=== PATIENT | female | born 1970 | race Caucasian/White ===

== ENCOUNTER 2017-04-04 10:53 | Emergency (ER) | payer OTHER ==
[2017-04-04 11:03] VITALS: BP 105/52; PULSE 92; TEMP 98; BMI 19.1
--- NOTE | 2017-04-04 11:33 | PDOC ---
History of Present Illness - General Chief Complaint: Cold Symptoms Stated Complaint: FEVER, COUGH Time Seen by Provider: 04/04/17 11:19 History Source: Patient Exam Limitations: No Limitations - History of Present Illness Initial Comments: 04/04/17 11:48 My Chief complaint: Sore throat, productive cough, chills and subjective fever nasal congestion and body aches History of present illness: Patient is a 47 year old female with no significant medical history here today with her complaining of generalized body aches, chills and subjective fever times one week with productive cough greenish phlegm with intermittent shortness of breath when coughing a lot. Patient also has nasal congestion. Patient denies any recent travel or any sick contacts. Patient denies any nausea vomiting or diarrhea. Patient is afebrile presently. Patient reports that she coughs more at night. 04/04/17 12:00 Timing/Duration: 1 week, getting worse Severity: mild Associated Symptoms: reports: cough (productive greenish ), fever/chills, shortness of breath (intermittent when coughing a lot ), other (sore throat) Past History - Past Medical History Allergies/Adverse Reactions: Allergies Allergy/AdvReac Type Severity Reaction Status Date / Time No Known Allergies Allergy Verified 04/04/17 11:01 Home Medications: Ambulatory Orders Azithromycin [Zithromax 250mg Tablets -] 250 mg PO UTDICT #6 tab 04/04/17 Fexofenadine HCl [Jennifer Allergy] 180 mg PO DAILY #7 tablet 04/04/17 Promethazine HCl/Codeine [Prometh-Codein 6.25-10 mg/5 ml] 5 ml PO Q8H PRN #50 ml MDD 15ml 04/04/17 Other medical history: denies. - Surgical History Abdominal Surgery: Yes Appendectomy: Yes - Psycho/Social/Smoking Cessation Hx Anxiety: No Suicidal Ideation: No Smoking Status: No Smoking History: Never smoked Have you smoked in the past 12 months: No Number of Cigarettes Smoked Daily: 0 Hx Alcohol Use: No Drug/Substance Use Hx: No Substance Use Type: None Review of Systems - Review of Systems Able to Perform ROS?: Yes Constitutional: Yes: Chills, Fever HEENTM: Yes: Nose Congestion, Throat Pain Respiratory: Yes: Shortness of Breath (intermittently when coughing a lot ), Productive cough Cardiac (ROS): No: Symptoms Reported ABD/GI: No: Symptoms Reported : No: Symptoms Reported Musculoskeletal: No: Symptoms Reported Integumentary: No: Symptoms Reported Neurological: No: Symptoms reported *Physical Exam - Vital Signs Last Vital Signs Temp Pulse Resp BP Pulse Ox 98.0 F 92 H 18 105/52 100 04/04/17 11:00 04/04/17 11:00 04/04/17 11:00 04/04/17 11:00 04/04/17 11:00 - Physical Exam General Appearance: Yes: Appropriately Dressed HEENT: positive: TMs Normal, Pharyngeal Erythema, Nasal Congestion. negative: Tonsillar Exudate, Tonsillar Erythema, Rhinorrhea Neck: negative: Lymphadenopathy (R), Lymphadenopathy (L) Respiratory/Chest: positive: Lungs Clear, Normal Breath Sounds. negative: Chest Tender, Respiratory Distress Cardiovascular: positive: Regular Rhythm, Regular Rate, S1, S2 Gastrointestinal/Abdominal: positive: Normal Bowel Sounds, Soft. negative: Tender, Organomegaly, Distended, Guarding, Rebound, Tenderness, Hepatomegaly, Spleenomegaly Integumentary: positive: Normal Color Neurologic: positive: Alert, Normal Response, Responsive Medical Decision Making - Medical Decision Making 04/04/17 11:49 Patient is a 47 year old female with no significant medical history here today with her complaining of generalized body aches, chills and subjective fever times one week with productive cough greenish phlegm with intermittent shortness of breath when coughing a lot. Patient also has nasal congestion. Patient denies any recent travel or any sick contacts. Patient denies any nausea vomiting or diarrhea. Patient is afebrile presently. Patient reports that she coughs more at night. Bronchitis Nasal congestion PLAN: azithromycin 250 mg 2 tabs daily than 1 tab daily for following 4 days decadron 10 mg po now duoneb now promethazine-Codeine 6.25-10mg/5ml every 8 hrs prn cough # 50 ml jennifer 180 mg daily for 7 days 04/04/17 12:01 *DC/Admit/Observation/Transfer Diagnosis at time of Disposition: Bronchitis - Discharge Dispostion Disposition: HOME Condition at time of disposition: Stable - Prescriptions Prescriptions: Promethazine HCl/Codeine [Prometh-Codein 6.25-10 mg/5 ml] 5 ml PO Q8H PRN #50 ml MDD 15ml PRN Reason: Cough - Patient Instructions Additional Instructions: Follow Up with primary care provider within the next few days return to emergency room if any difficulty breathing or new symptoms develop Drink A fluids and rest Take ibuprofen or acetaminophen as needed as directed by supervisor gear repair for fever or pain Patient voiced understanding of discharge instructions and all questions were answered
[2017-04-04] MEDS ORDERED: ALBUTEROL SO4 2.5/IPRATROPIUM 0.5 INH SOL 3 ML VIAL.NEB. NEB ONE ×2 (11:42→11:46)
[2017-04-04] MEDS ORDERED: DEXAMETHASONE LIQUID 0.5 MG/5 ML 240 ML BULK BOTTLE PO ONE (11:43)
[2017-04-04] MEDS ORDERED: DEXAMETHASONE SOD PHOSPHATE 10 MG/1 ML VIAL ONE (11:45)
== END 2017-04-04 12:13 | disposition home or self-care (01) ==
LOC: JERFT 10:53
PROC: 3E0F7GC Introduction of Other Therapeutic Substance into Respiratory Tract, Via Natural or Artificial Opening (ICD-10-PCS; principal; 2017-04-04)
DX: J40 Bronchitis, not specified as acute or chronic (principal)
CPT/HCPCS: 94640; 99281-25

== ENCOUNTER 2017-04-28 19:36 | Emergency (ER) | payer OTHER ==
--- NOTE | 2017-04-28 19:43 | PDOC ---
Rapid Medical Evaluation Time Seen by Provider: 04/28/17 19:40 Medical Evaluation: Allergies Allergy/AdvReac Type Severity Reaction Status Date / Time No Known Allergies Allergy Verified 04/04/17 11:01 I have performed a brief in-person evaluation of this patient. The patient presents with a chief complaint of: left groin pain that radiates around to her left back for 1 hour. Pain intensity is intermittent. no dysuria or hematuria. Pertinent physical exam findings: Pain with palpation of suprapubic region, left groin and left flank. No CVA TTP b/l. I have ordered the following: hcg, UA, culture The patient will proceed to the ED for further evaluation.
[2017-04-28 19:46] VITALS: BP 111/58; PULSE 80; TEMP 97.7; BMI 24.6
[2017-04-28 20:09] LABS: URINE APPEARANCE CLEAR; URINE BILIRUBIN NEGATIVE (NEGATIVE); URINE COLOR COLORLESS; URINE GLUCOSE (UA) NEGATIVE (NEGATIVE); URINE KETONE NEGATIVE (NEGATIVE); URINE LEUK ESTERASE NEGATIVE (NEGATIVE); URINE NITRITE NEGATIVE (NEGATIVE); URINE PROTEIN NEGATIVE (NEGATIVE); URINE UROBILINOGEN NEGATIVE E.U./dl (0.2-1.0)
[2017-04-28 20:16] LABS: URINE BLOOD 1+ (NEGATIVE)
[2017-04-28 20:17] LABS: URINE RBC 1 /hpf (0-3); URINE WBC <1 /hpf (3-5)
[2017-04-28] MEDS ORDERED: SODIUM CHLORIDE 1,000 ML IV STA (20:32)
--- NOTE | 2017-04-28 20:44 | PDOC ---
History of Present Illness - General Chief Complaint: Pain Stated Complaint: SIDE PAIN Time Seen by Provider: 04/28/17 19:40 History Source: Patient Exam Limitations: No Limitations - History of Present Illness Travel History: No Initial Comments: 04/28/17 20:40 47-year-old female presents to the emergency department complaining of left sided LBP 5/10 sharp pain radiating to the right groin to mid ant thigh without fever, chills, nausea/vomiting, abdominal pains, urinary symptoms: Frequency/ urgency/hesitancy, chest pain, shortness of breath. No bladder/bowel dysfunction. Timing/Duration: reports: intermittent Quality: reports: mild Abdominal Pain Onset Location: reports: flank (left) Pain Radiation: reports: groin (left) Past History - Past Medical History Allergies/Adverse Reactions: Allergies Allergy/AdvReac Type Severity Reaction Status Date / Time No Known Allergies Allergy Verified 04/28/17 19:43 Home Medications: Ambulatory Orders NK [No Known Home Medication] 04/28/17 Other medical history: Pt denies - Surgical History Abdominal Surgery: Yes Appendectomy: Yes (in 2006) - Psycho/Social/Smoking Cessation Hx Anxiety: No Suicidal Ideation: No Smoking Status: No Smoking History: Never smoked Have you smoked in the past 12 months: No Number of Cigarettes Smoked Daily: 0 Information on smoking cessation initiated: No Hx Alcohol Use: No Drug/Substance Use Hx: No Substance Use Type: None Review of Systems - Review of Systems Able to Perform ROS?: Yes Comments:: 04/28/17 20:43 CONSTITUTIONAL: Absent: fever, chills, diaphoresis, generalized weakness, malaise, loss of appetite HEENT: Absent: rhinorrhea, nasal congestion, throat pain, throat swelling, difficulty swallowing, mouth swelling, ear pain, eye pain, visual Changes CARDIOVASCULAR: Absent: chest pain, loss of consciousness, palpitations, irregular heart rate, peripheral edema RESPIRATORY: Absent: cough, shortness of breath, dyspnea with exertion, orthopnea, wheezing, stridor, hemoptysis GASTROINTESTINAL: Absent: abdominal pain, abdominal distension, nausea, vomiting, diarrhea, constipation, melena, hematochezia GENITOURINARY: Absent: dysuria, frequency, urgency, hesitancy, hematuria, flank pain, genital pain MUSCULOSKELETAL: Absent: myalgia, arthralgia, joint swelling SKIN: Absent: rash, itching, pallor HEMATOLOGIC/IMMUNOLOGIC: Absent: easy bleeding, easy bruising, lymphadenopathy, frequent infections ENDOCRINE: Absent: unexplained weight gain, unexplained weight loss, heat intolerance, cold intolerance NEUROLOGIC: Absent: headache, focal weakness or paresthesias, dizziness, unsteady gait, seizure, mental status changes, bladder or bowel incontinence PSYCHIATRIC: Absent: anxiety, depression, suicidal or homicidal ideation, hallucinations. Is the patient limited Lithuanian proficient: No *Physical Exam - Vital Signs Last Vital Signs Temp Pulse Resp BP Pulse Ox 97.7 F 80 19 111/58 100 04/28/17 19:44 04/28/17 19:44 04/28/17 19:44 04/28/17 19:44 04/28/17 19:44 - Physical Exam Comments: 04/28/17 20:43 GENERAL: Well developed, well nourished. Awake and alert. No acute distress. HEENT: Normocephalic, atraumatic. PERRLA, EOMI. No conjunctival pallor. Sclera are non- icteric. Moist mucous membranes. Oropharynx is clear. NECK: Supple. Full ROM. No JVD. Carotid pulses 2+ and symmetric, without bruits. No thyromegaly. No lymphadenopathy. CARDIOVASCULAR: Regular rate and rhythm. No murmurs, rubs, or gallops. Distal pulses are 2+ and symmetric. PULMONARY: No evidence of respiratory distress. Lungs clear to auscultation bilaterally. No wheezing, rales or rhonchi. ABDOMINAL: Soft. Non-tender. Non-distended. No rebound or guarding. No organomegaly. Normoactive bowel sounds. MUSCULOSKELETAL Normal range of motion at all joints. No bony deformities or tenderness. No CVA tenderness. EXTREMITIES: +left SLR No cyanosis. No clubbing. No edema. No calf tenderness. SKIN: Warm and dry. Normal capillary refill. No rashes. No jaundice. NEUROLOGICAL: Alert, awake, appropriate. Cranial nerves 2-12 intact. No deficits to light touch and temperature in face, upper extremities and lower extremities. No motor deficits in the in face, upper extremities and lower extremities. Normoreflexic in the upper and lower extremities. Normal speech. Toes are down- going bilaterally. Gait is normal without ataxia. PSYCHIATRIC: Cooperative. Good eye contact. Appropriate mood and affect. ED Treatment Course - LABORATORY CBC & Chemistry Diagram: 04/28/17 20:30 04/28/17 20:30 - ADDITIONAL ORDERS Additional order review: Laboratory Results 04/28/17 19:50 Urine Color Colorless Urine Appearance Clear Urine pH 6.0 D Urine Protein Negative Urine Glucose (UA) Negative Urine Ketones Negative Urine Blood 1+ H Urine Nitrite Negative Urine Bilirubin Negative Urine Urobilinogen Negative Ur Leukocyte Esterase Negative Urine HCG, Qual Negative - RADIOLOGY Radiology Studies Ordered: Category Date Time Status SPIRAL- RENAL-STONE CT [CT] Stat CT Scan 04/28/17 20:32 Ordered *DC/Admit/Observation/Transfer Diagnosis at time of Disposition: Herniated lumbar intervertebral disc - Discharge Dispostion Disposition: HOME Condition at time of disposition: Stable Admit: No - Referrals Referrals: Janessa Woodward MD [Primary Care Provider] - Félix Leiva MD [Staff Physician] - - Patient Instructions Printed Discharge Instructions: Herniated Disc Additional Instructions: Follow up with the neurosurgeon listed on your discharge papers Tylenol/Motrin as needed for mild pain Percocet for severe pain Medrol dose pack Return to the ER for severe/persistent/worsening symptoms, bladder/bowel dysfunction.
[2017-04-28 20:48] LABS: BASOPHIL 1.2 % (0-2.0); EOSINOPHIL 2.9 % (0-4.5); MCH 27.4 pg (25.7-33.7); MCHC 33.7 g/dl (32.0-36.0); MEAN CELL VOLUME 81.3 fl (80-96); MEAN PLT VOLUME 9.4 fl (7.5-11.1); NEUTROPHILS 60.7 % (42.8-82.8); PLATELET COUNT 258 K/MM3 (134-434); RDW 13.7 % (11.6-15.6); WHITE BLOOD COUNT 6.9 K/mm3 (4.0-10.0)
[2017-04-28 21:12] LABS: ALBUMIN 3.7 g/dl (3.4-5.0); ALK PHOS 130 U/L (45-117); ANION GAP 9 (8-16); BILIRUBIN,TOTAL 0.3 mg/dL (0.2-1.0); CALCIUM 8.7 mg/dL (8.5-10.1); CO2 29 mmol/L (21-32); CREATININE 0.6 mg/dL (0.55-1.02); GLUCOSE,RANDOM 94 mg/dL (74-106); SGOT/AST 24 U/L (15-37); SGPT/ALT 33 U/L (12-78); TOT PROT 7.1 g/dl (6.4-8.2)
[2017-04-29] MEDS ORDERED: OXYCODONE/APAP 5/325MG COMBO TABLET PO ONE (01:10)
[2017-04-29] MEDS ORDERED: OXYCODONE/APAP 5/325MG COMBO TABLET ONE (01:28)
--- NOTE | 2017-05-01 13:33 | PDOC ---
Patient Follow-up (Call Back) - Post ED Follow - Up Condition at time of discharge: Stable Disposition at time of original discharge: HOME Reason for Call Back: Abnwl. Microbiology Signs/Symptoms Improved: Yes - Disposition Additional Instructions/Notes: Patient called and notified of positive urine culture. Called prescription/ transmitted Macrobid 100 mg twice a day 1 week to [facility] pharmacy patient understands plan and will follow up with PCP
== END 2017-04-29 01:37 | disposition home or self-care (01) ==
LOC: JER 19:36
PROC: 3E0337Z Introduction of Electrolytic and Water Balance Substance into Peripheral Vein, Percutaneous Approach (ICD-10-PCS; principal; 2017-04-28)
DX: M51.26 Other intervertebral disc displacement, lumbar region (principal)
CPT/HCPCS: 36415; 74176; 80053; 81003; 81015; 84703; 85025; 87086; 87186; 96360; 99282-25

== ENCOUNTER 2017-09-09 06:58 | Emergency (ER) | payer OTHER ==
[2017-09-09 07:11] VITALS: TEMP 98; BMI 24.2
--- NOTE | 2017-09-09 07:32 | PDOC ---
History of Present Illness - General History Source: Patient Exam Limitations: No Limitations - History of Present Illness Initial Comments: 09/09/17 07:41 47 year old female, with no significant past medical history, who presents to the emergency room complaining of lower back pain that started this morning after lifting a heavy box. She states that the pain is exacerbated when walking. She took two motrin without relief. She notes that this happened once before in the past and the pain resolved after 1 week. Denies fever, chills, nausea, vomiting. Denies extremity weakness, numbness and tingling. Denies urinary symptoms. Denies neck pain. Allergies: NKDA PCP: Dr. Janessa Woodward <Idalia Mckeon - Last Filed: 09/09/17 10:09> <Sonya Romo - Last Filed: 09/09/17 11:49> - General Chief Complaint: Back Pain Stated Complaint: BACK PAIN Time Seen by Provider: 09/09/17 07:27 Past History <Idalia Mckeon - Last Filed: 09/09/17 10:09> - Past Medical History Other medical history: DENIES - Surgical History Abdominal Surgery: Yes Appendectomy: Yes (in 2006) - Suicide/Smoking/Psychosocial Hx Smoking Status: No Smoking History: Never smoked Have you smoked in the past 12 months: No Number of Cigarettes Smoked Daily: 0 Hx Alcohol Use: No Drug/Substance Use Hx: No Substance Use Type: None <Sonya Romo - Last Filed: 09/09/17 11:49> - Past Medical History Allergies/Adverse Reactions: Allergies Allergy/AdvReac Type Severity Reaction Status Date / Time No Known Allergies Allergy Verified 09/09/17 07:11 Home Medications: Ambulatory Orders NK [No Known Home Medication] 09/09/17 Review of Systems - Review of Systems Able to Perform ROS?: Yes Comments:: 09/09/17 07:41 GENERAL/CONSTITUTIONAL: No fever or chills. No weakness. HEAD, EYES, EARS, NOSE AND THROAT: No change in vision. No ear pain or discharge. No sore throat. GASTROINTESTINAL: No nausea, vomiting, diarrhea or constipation. GENITOURINARY: No dysuria, frequency, or change in urination. CARDIOVASCULAR: No chest pain or shortness of breath. RESPIRATORY: No cough, wheezing, or hemoptysis. MUSCULOSKELETAL: +lower back pain. No neck pain. SKIN: No rash NEUROLOGIC: No headache, vertigo, loss of consciousness, or change in strength/ sensation. ENDOCRINE: No increased thirst. No abnormal weight change. HEMATOLOGIC/LYMPHATIC: No anemia, easy bleeding, or history of blood clots. ALLERGIC/IMMUNOLOGIC: No hives or skin allergy. <Idalia Mckeon - Last Filed: 09/09/17 10:09> *Physical Exam - Vital Signs Last Vital Signs Temp Pulse Resp BP Pulse Ox 98.0 F 75 22 121/48 98 09/09/17 07:08 09/09/17 07:08 09/09/17 07:08 09/09/17 07:08 09/09/17 07:08 - Physical Exam Comments: 09/09/17 07:42 GENERAL: Awake, alert, and fully oriented, in no acute distress HEAD: No signs of trauma EYES: PERRLA, EOMI, sclera anicteric, conjunctiva clear ENT: Auricles normal inspection, hearing grossly normal, nares patent, oropharynx clear without exudates. Moist mucosa NECK: Normal ROM, supple, no lymphadenopathy, JVD, or masses LUNGS: Breath sounds equal, clear to auscultation bilaterally. No wheezes, and no crackles HEART: Regular rate and rhythm, normal S1 and S2, no murmurs, rubs or gallops ABDOMEN: Soft, nontender, normoactive bowel sounds. No guarding, no rebound. No masses EXTREMITIES: Normal range of motion, no edema. No clubbing or cyanosis. No cords, erythema, or tenderness BACK: +paraspinal lumbar tenderness to palpation.+ sacral tenderness to palpation. No midline spinal tenderness in cervical/thoracic/lumbar region NEUROLOGICAL: Normal speech, cranial nerves intact, negative pronator drift, 5/ 5 strength in all 4 extremities, normal sensation to light touch in all 4 extremities, normal cerebellar exam, antalgic but steady gait, normal reflexes and tone SKIN: Warm, Dry, normal turgor, no rashes or lesions noted. <Idalia Mckeon - Last Filed: 09/09/17 10:09> - Vital Signs Last Vital Signs Temp Pulse Resp BP Pulse Ox 98.0 F 75 22 121/48 98 09/09/17 07:08 09/09/17 07:08 09/09/17 07:08 09/09/17 07:08 09/09/17 07:08 <Sonya Romo - Last Filed: 09/09/17 11:49> Medical Decision Making - Medical Decision Making 09/09/17 10:10 Called [id number] at 9:31am Urine HCG received at 7:45am sent to [facility]. Awaiting result then Xray <Idalia Mckeon - Last Filed: 09/09/17 10:09> - Medical Decision Making 09/09/17 07:37 47-year-old female presents with lumbosacral back pain after lifting a heavy box this morning and hearing a "crack." Vitals are unremarkable. Exam with tenderness to palpation all along the sacrum and paraspinal lumbar muscles with no midline tenderness to palpation. Patient able to ambulate in the ED. No red flags of urinary retention or weakness or decreased sensation in the lower extremities. Likely musculoskeletal strain versus disc herniation. -UPT -UA -pain control -XR -anticipate DC 09/09/17 11:46 UA with blood, pt has period. UPT negative. XR with no acute findings. Pain well controlled with percocet and flexuril. Likely MSK pain I discussed the physical exam findings, ancillary test results and final diagnoses with the patient. I answered all of the patient's questions. The patient was satisfied with the care received and felt comfortable with the discharge plan and treatment plan. The patient will call their primary care physician within 24 hours to arrange follow-up and will return to the Emergency Department with any new, persistent or worsening symptoms. <Sonya Romo - Last Filed: 09/09/17 11:49> *DC/Admit/Observation/Transfer - Attestations Scribe Attestion: 09/09/17 07:42 Documentation prepared by TERESA Meehan, acting as medical aide for Sonya Romo MD. <Idalia Mckeon - Last Filed: 09/09/17 10:09> - Discharge Dispostion Admit: No - Attestations Physician Attestion: 09/09/17 11:47 I, Dr. Sonya Romo MD, attest that this document has been prepared under my direction and personally reviewed by me in its entirety. I further attest, that it accurately reflects all work, treatment, procedures and medical decision -making performed by me. <Sonya Romo - Last Filed: 09/09/17 11:49> Diagnosis at time of Disposition: Back sprain or strain - Discharge Dispostion Disposition: HOME Condition at time of disposition: Stable - Referrals Referrals: Janessa Woodward MD [Primary Care Provider] - - Patient Instructions Additional Instructions: Please follow up with Dr. Janessa Woodward within 1 week. Return to the emergency department if you have new, worsening, or concerning symptoms.
[2017-09-09] MEDS ORDERED: CYCLOBENZAPRINE HCL 10 MG TABLET (FP) PO ONE (07:36)
[2017-09-09] MEDS ORDERED: CYCLOBENZAPRINE HCL 10 MG TABLET (FP) ONE (07:41)
[2017-09-09 07:55] LABS: URINE APPEARANCE CLEAR; URINE BILIRUBIN NEGATIVE (NEGATIVE); URINE BLOOD 3+ (NEGATIVE); URINE COLOR YELLOW; URINE GLUCOSE (UA) NEGATIVE (NEGATIVE); URINE KETONE NEGATIVE (NEGATIVE); URINE NITRITE NEGATIVE (NEGATIVE); URINE UROBILINOGEN NEGATIVE mg/dL (0.2-1.0)
[2017-09-09 08:47] LABS: URINE PROTEIN 2+ (NEGATIVE)
[2017-09-09 08:50] LABS: URINE MUCUS RARE; URINE RBC 43 /hpf (0-3); URINE WBC 2 /hpf (3-5)
[2017-09-09] MEDS ORDERED: ONDANSETRON *ODT* 4 MG TABLET ONE (09:00)
[2017-09-09] MEDS ORDERED: ONDANSETRON *ODT* 4 MG TABLET SL ONE (09:10)
[2017-09-09 10:56] LABS: URINE LEUK ESTERASE Negative (NEGATIVE)
[2017-09-09 12:11] VITALS: BP 100/72; PULSE 80
== END 2017-09-09 12:12 | disposition home or self-care (01) ==
LOC: JER 06:58
DX: S39.012A Strain of muscle, fascia and tendon of lower back, initial encounter (principal); X50.0XXA Overexertion from strenuous movement or load, initial encounter; Y93.89 Activity, other specified; Y92.89 Other specified places as the place of occurrence of the external cause; Y99.8 Other external cause status
CPT/HCPCS: 72100-TC; 81003; 81015; 84703; 87086; 99283-25

== ENCOUNTER 2017-09-16 19:49 | Emergency (ER) | payer OTHER ==
[2017-09-16 19:58] VITALS: BP 128/87; BMI 25.7
--- NOTE | 2017-09-16 20:49 | PDOC ---
Attending Attestation - Physicial Exam PE: 09/16/17 20:51 GENERAL: Well developed, well nourished. Awake and alert. In no acute distress. HEENT: Normocephalic, atraumatic. PERRLA, EOMI. No conjunctival pallor. Sclerae are non -icteric. Moist mucous membranes. Oropharynx is clear. NECK: Supple. Full ROM. No JVD. Carotid pulses 2+ and symmetric, without bruits. No thyromegaly. No lymphadenopathy. CARDIOVASCULAR: Regular rate and rhythm. No murmurs, rubs, or gallops. Distal pulses are 2+ and symmetric. PULMONARY: No evidence of respiratory distress. Lungs clear to auscultation bilaterally. No wheezing, rales or rhonchi. ABDOMINAL: Soft. Non-tender. Non-distended. No rebound or guarding. No organomegaly. Normoactive bowel sounds. MUSCULOSKELETAL Normal range of motion at all joints. No bony deformities or tenderness. No CVA tenderness. EXTREMITIES: No cyanosis. No clubbing. No edema. No calf tenderness. SKIN: Warm and dry. Normal capillary refill. No rashes. No jaundice. NEUROLOGICAL: Alert, awake, appropriate. Cranial nerves 2-12 intact. No deficits to light touch and temperature in face, upper extremities and lower extremities. No motor deficits in the in face, upper extremities and lower extremities. Normoreflexic in the upper and lower extremities. Normal speech. Toes are downgoing bilaterally. Gait is normal without ataxia. PSYCHIATRIC: Cooperative. Good eye contact. Appropriate mood and affect. <Dara Varghese - Last Filed: 09/16/17 20:51> - Resident Resident Name: Abimael Valencia - ED Attending Attestation I have performed the following: I have examined & evaluated the patient, The case was reviewed & discussed with the resident, I agree w/resident's findings & plan, Exceptions are as noted - HPI HPI: 09/16/17 20:49 Low back pain with radiation to right leg. - Physicial Exam PE: 09/17/17 19:30 *Physical Exam General Appearance: Yes: Appropriately Dressed. No: Apparent Distress, Intoxicated HEENT: positive: EOMI, JOSE LUIS, Normal ENT Inspection, Normal Voice, TMs Normal, Pharynx Normal. negative: Pale Conjunctivae, Photophobia, Scleral Icterus (R), Scleral Icterus (L) Neck: positive: Trachea midline, Normal Thyroid, Supple. negative: Tender, Rigid, Carotid bruit, Stridor, Lymphadenopathy (R), Lymphadenopathy (L), Thyromegaly Respiratory/Chest: positive: Lungs Clear, Normal Breath Sounds. negative: Chest Tender, Respiratory Distress, Accessory Muscle Use, Labored Respiration, RES, Crackles, Rales, Rhonchi, Stridor, Wheezing, Dullness Cardiovascular: positive: Regular Rhythm, Regular Rate, S1, S2. negative: Edema , JVD, Murmur, Bradycardia, Tachycardia Vascular Pulses: Dorsalis-Pedis (R): 2+, Doralis-Pedis (L): 2+ Gastrointestinal/Abdominal: positive: Normal Bowel Sounds, Flat, Soft. negative : Tender, Organomegaly, Pulsatile Mass, Increased Bowel Sounds, Decreased BS, Distended, Guarding, Rebound, Hernia, Hepatomegaly, Spleenomegaly Lymphatic: negative: Adenopathy, Tenderness Musculoskeletal: positive: Normal Inspection. negative: CVA Tenderness, Decreased Range of Motion Extremity: positive: Normal Capillary Refill, Normal Inspection, Normal Range of Motion, Pelvis Stable. negative: Tender, Pedal Edema, Swelling, Erythema Integumentary: positive: Normal Color, Dry, Warm. negative: Cyanotic, Erythema , Jaundice, Rash Neurologic: positive: property manager II-XII NML intact, Fully Oriented, Alert, Normal Mood/ Affect, Motor Strength 5/5. negative: EOM Palsy, Facial Droop, Sensory Deficit - Medical Decision Making 09/17/17 19:29 Pt discharged. Found to have disc herniation of L4-L5 <Thierry Valentin - Last Filed: 09/17/17 19:32> Discharge Disposition <Dara Varghese - Last Filed: 09/16/17 20:51> - Discharge Dispostion Last Admission D/C Date: 05/11/07 Admit: No <Thierry Valentin - Last Filed: 09/17/17 19:32> - Diagnosis Lumbar disc herniation UTI (urinary tract infection) Qualifiers: Urinary tract infection type: site unspecified Hematuria presence: without hematuria Qualified Code(s): N39.0 - Urinary tract infection, site not specified - Prescriptions Prescriptions: Levofloxacin [Levaquin -] 500 mg PO DAILY #7 tablet Ibuprofen [Motrin] 600 mg PO TID #30 tablet Oxycodone HCl/Acetaminophen [Percocet 5-325 mg Tablet] 1 - 2 tab PO Q6H #20 tablet MDD 4 Methocarbamol [Robaxin -] 500 mg PO TID #30 tablet - Referrals Referrals: Raisa Luciano MD [Staff Physician] - Yonas Bob MD, FAANS [Staff Physician] - - Patient Instructions Printed Discharge Instructions: DI for Urinary Tract Infection (UTI), DI for Herniated Disc Additional Instructions: Please follow up with your doctor or the doctor referred to you here in the ER. Avoid driving when taking Percocet. Print Language: MONGOLIAN
[2017-09-16 21:38] LABS: URINE APPEARANCE CLEAR; URINE BILIRUBIN NEGATIVE (NEGATIVE); URINE BLOOD NEGATIVE (NEGATIVE); URINE COLOR LTYELLOW; URINE GLUCOSE (UA) NEGATIVE (NEGATIVE); URINE KETONE NEGATIVE (NEGATIVE); URINE NITRITE NEGATIVE (NEGATIVE); URINE PROTEIN NEGATIVE (NEGATIVE); URINE UROBILINOGEN NEGATIVE mg/dL (0.2-1.0)
[2017-09-16 21:46] LABS: BASOPHIL 0.8 % (0-2.0); EOSINOPHIL 3.6 % (0-4.5); MCH 28.5 pg (25.7-33.7); MCHC 34.8 g/dl (32.0-36.0); MEAN CELL VOLUME 81.9 fl (80-96); MEAN PLT VOLUME 9.2 fl (7.5-11.1); NEUTROPHILS 55.9 % (42.8-82.8); PLATELET COUNT 287 K/MM3 (134-434); RDW 13.4 % (11.6-15.6); WHITE BLOOD COUNT 6.3 K/mm3 (4.0-10.0)
--- NOTE | 2017-09-16 21:59 | PDOC ---
History of Present Illness - General Chief Complaint: Pain, Acute Stated Complaint: PAIN Time Seen by Provider: 09/16/17 20:20 - History of Present Illness Initial Comments: 09/16/17 21:52 The patient is a 47 year old female with no significant PMH who presents for evaluation of lower back pain. The patient is accompanied by her who assists in providing the history. They report a several month history of right sided lower back pain with some radiation into her right leg and groin. The patient reports an acute worsening in that pain over the past 2 weeks with severe pain and tingling down her right leg. She was seen in the ED about 1 week ago for these same symptoms and was prescribed naproxen. The patient states that her pain has not improved on naproxen and has actually worsened prompting her presentation today. She states that in the past she has taken a course of steroids which helped manage her pain. The patient denies any saddle anesthesia, fevers, chills, SOB, chest pain, abdominal pain, or changes with urination or bowel movements. Past History - Past Medical History Allergies/Adverse Reactions: Allergies Allergy/AdvReac Type Severity Reaction Status Date / Time No Known Allergies Allergy Verified 09/09/17 07:11 Home Medications: Ambulatory Orders Naproxen [Naprosyn -] 500 mg PO BID PRN #28 tablet 09/09/17 Ibuprofen [Motrin] 600 mg PO TID #30 tablet 09/17/17 Levofloxacin [Levaquin -] 500 mg PO DAILY #7 tablet 09/17/17 Methocarbamol [Robaxin -] 500 mg PO TID #30 tablet 09/17/17 Oxycodone HCl/Acetaminophen [Percocet 5-325 mg Tablet] 1 - 2 tab PO Q6H #20 tablet MDD 4 09/17/17 - Surgical History Abdominal Surgery: Yes Appendectomy: Yes (in 2006) - Suicide/Smoking/Psychosocial Hx Smoking Status: No Smoking History: Never smoked Have you smoked in the past 12 months: No Number of Cigarettes Smoked Daily: 0 Hx Alcohol Use: No Drug/Substance Use Hx: No Substance Use Type: None Review of Systems - Review of Systems Comments:: 09/16/17 21:59 Constitutional: No fevers, chills, fatigue, malaise HEENT: No Rhinorrhea, nasal congestion, Cardiovascular: No chest pain, syncope, palpitations, lightheadedness Respiratory: No Cough, SOB, Hemoptysis, Gastrointestinal: No Abdominal pain, Nausea, Vomiting, Constipation, Diarrhea, Melena Genitourinary: No Dysuria, Frequency, Urgency, Hesitancy, Hematuria, Musculoskeletal: Lower back pain. No Myalgia, arthralgia Skin: No rashes,bruising, pallor Neurologic: Tingling. No Headache, Dizziness, Numbness, Weakness, *Physical Exam - Vital Signs Last Vital Signs Temp Pulse Resp BP Pulse Ox 128/87 67 L 09/16/17 19:51 09/16/17 19:51 - Physical Exam Comments: 09/16/17 22:00 General Appearance: Nourished. No Apparent Distress HEENT: EOMI, JOSE LUIS. Neck: No Cervical Lymphadenopathy Respiratory/Chest: Lungs Clear, Normal Breath Sounds. No Crackles, Rales, Rhonchi, Wheezing Cardiovascular: Regular Rhythm, Regular Rate. No Murmur, Gallops, Rubs Gastrointestinal/Abdominal: Normal Bowel Sounds, Soft. 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 Positive straight leg raise test on the right. Sensation to light touch and temperature intact bilaterally in the distal extremities. ED Treatment Course - LABORATORY CBC & Chemistry Diagram: 09/16/17 21:40 09/16/17 21:40 - ADDITIONAL ORDERS Additional order review: Laboratory Results 09/16/17 09/16/17 21:40 21:31 WBC 6.3 RBC 4.71 Hgb 13.4 Hct 38.6 MCV 81.9 MCH 28.5 MCHC 34.8 RDW 13.4 Plt Count 287 MPV 9.2 Neutrophils % 55.9 Lymphocytes % 33.5 D Monocytes % 6.2 Eosinophils % 3.6 Basophils % 0.8 Urine Color Ltyellow Urine Appearance Clear Urine pH 6.0 Urine Protein Negative Urine Glucose (UA) Negative Urine Ketones Negative Urine Blood Negative Urine Nitrite Negative Urine Bilirubin Negative Urine Urobilinogen Negative Urine HCG, Qual Negative 09/16/17 21:40 RBC 4.71 MCV 81.9 MCHC 34.8 RDW 13.4 MPV 9.2 Neutrophils % 55.9 Lymphocytes % 33.5 D Monocytes % 6.2 Eosinophils % 3.6 Basophils % 0.8 Medical Decision Making - Medical Decision Making 09/16/17 22:01 The patient is a 47 year old female with no significant PMH who presents for evaluation of lower back pain. Differential includes but is not limited to: UTI , nephrolethiasis, disk herniation,metabolic derangement. Given the patient's symptoms of lower back pain with radiation into her right leg and associated tingling, it is likely her pain is due to a disk herniation. She has not had a ct lumbar spine done in the past and we will obtain a ct lumbar spine here in the ed. We will also obtain a UA, cbc, cmp to evaluate further. We will continue to monitor and reassess. *DC/Admit/Observation/Transfer Diagnosis at time of Disposition: Lumbar disc herniation UTI (urinary tract infection) Qualifiers: Urinary tract infection type: site unspecified Hematuria presence: without hematuria Qualified Code(s): N39.0 - Urinary tract infection, site not specified - Discharge Dispostion Disposition: HOME Condition at time of disposition: Good - Prescriptions Prescriptions: Levofloxacin [Levaquin -] 500 mg PO DAILY #7 tablet Ibuprofen [Motrin] 600 mg PO TID #30 tablet Oxycodone HCl/Acetaminophen [Percocet 5-325 mg Tablet] 1 - 2 tab PO Q6H #20 tablet MDD 4 Methocarbamol [Robaxin -] 500 mg PO TID #30 tablet - Referrals Referrals: Yonas Bob MD, FAANS [Staff Physician] - Raisa Luciano MD [Staff Physician] - - Patient Instructions Printed Discharge Instructions: DI for Urinary Tract Infection (UTI), DI for Herniated Disc Additional Instructions: Please follow up with your doctor or the doctor referred to you here in the ER. Avoid driving when taking Percocet. Print Language: MOHAWK
[2017-09-16 22:13] LABS: ALBUMIN 3.7 g/dl (3.4-5.0); ANION GAP 5 (8-16); BILIRUBIN,TOTAL 0.4 mg/dL (0.2-1.0); CALCIUM 8.3 mg/dL (8.5-10.1); CO2 30 mmol/L (21-32); CREATININE 0.5 mg/dL (0.55-1.02); GLUCOSE,RANDOM 99 mg/dL (74-106); SGOT/AST 22 U/L (15-37); SGPT/ALT 34 U/L (12-78); TOT PROT 7.1 g/dl (6.4-8.2)
[2017-09-16 22:14] LABS: ALK PHOS 127 U/L (45-117)
--- NOTE | 2017-09-16 22:25 | PDOC ---
*Physical Exam - Vital Signs Last Vital Signs Temp Pulse Resp BP Pulse Ox 128/87 67 L 09/16/17 19:51 09/16/17 19:51 ED Treatment Course - LABORATORY CBC & Chemistry Diagram: 09/16/17 21:40 09/16/17 21:40 - ADDITIONAL ORDERS Additional order review: Laboratory Results 09/16/17 09/16/17 21:40 21:31 Sodium 139 Potassium 4.3 Chloride 104 Carbon Dioxide 30 Anion Gap 5 L BUN 9 Creatinine 0.5 L Creat Clearance w eGFR > 60 Random Glucose 99 Calcium 8.3 L Total Bilirubin 0.4 D AST 22 ALT 34 Alkaline Phosphatase 127 H Total Protein 7.1 Albumin 3.7 Urine Color Ltyellow Urine Appearance Clear Urine pH 6.0 Urine Protein Negative Urine Glucose (UA) Negative Urine Ketones Negative Urine Blood Negative Urine Nitrite Negative Urine Bilirubin Negative Urine Urobilinogen Negative Urine HCG, Qual Negative 09/16/17 21:40 RBC 4.71 MCV 81.9 MCHC 34.8 RDW 13.4 MPV 9.2 Neutrophils % 55.9 Lymphocytes % 33.5 D Monocytes % 6.2 Eosinophils % 3.6 Basophils % 0.8 Medical Decision Making - Medical Decision Making 09/16/17 22:24 Patient signed out by Dr. Valencia (Resident) and under the care of Dr. Valentin (Attending) Patient evaluated and examined primarily by Dr. Valentin. Patient is a 47 y.o. female who presents with lumbar back pain. CT Lumbar spine shows possible L5 nerve root compression and no acute fracture. UA positive for trace leukocyte esterase, patient given outpatient Levofloxacin and pain control (Percocet, Robaxin, Naproxen, Ibuprofen) and and discharged with instruction to follow-up with PCP. *DC/Admit/Observation/Transfer Diagnosis at time of Disposition: Lumbar disc herniation UTI (urinary tract infection) Qualifiers: Qualified Code(s): N39.0 - Urinary tract infection, site not specified - Prescriptions Prescriptions: Levofloxacin [Levaquin -] 500 mg PO DAILY #7 tablet Ibuprofen [Motrin] 600 mg PO TID #30 tablet Oxycodone HCl/Acetaminophen [Percocet 5-325 mg Tablet] 1 - 2 tab PO Q6H #20 tablet MDD 4 Methocarbamol [Robaxin -] 500 mg PO TID #30 tablet - Referrals Referrals: Yonas Bob MD, FAANS [Staff Physician] - Raisa Luciano MD [Staff Physician] - - Patient Instructions Printed Discharge Instructions: DI for Urinary Tract Infection (UTI), DI for Herniated Disc Additional Instructions: Please follow up with your doctor or the doctor referred to you here in the ER. Avoid driving when taking Percocet. Print Language: ICELANDIC
[2017-09-16 22:29] LABS: URINE LEUK ESTERASE TRACE (NEGATIVE)
[2017-09-16 23:13] LABS: URINE BACTERIA FEW /hpf (NEGATIVE); URINE RBC 0-2 /hpf (0-3)
[2017-09-17] MEDS ORDERED: LEVOFLOXACIN 500 MG TABLET (FP) PO ONE (01:22)
[2017-09-17] MEDS ORDERED: LEVOFLOXACIN 500 MG TABLET (FP) ONE (01:41)
== END 2017-09-17 02:07 | disposition home or self-care (01) ==
LOC: JER 19:49
DX: M51.26 Other intervertebral disc displacement, lumbar region (principal); N39.0 Urinary tract infection, site not specified
CPT/HCPCS: 36415; 72131-TC; 80053; 81003; 81015; 84703; 85025; 87086; 99281-25

== ENCOUNTER 2018-01-05 20:52 | Emergency (ER) | payer SELFPAY ==
[2018-01-05 20:58] VITALS: BP 150/99; PULSE 98; TEMP 98.2; BMI 25.1
[2018-01-05] MEDS ORDERED: KETOROLAC TROMETHAMINE 30 MG/1 ML VIAL IM ONE (21:09)
[2018-01-05] MEDS ORDERED: KETOROLAC TROMETHAMINE 15 MG/ML VIAL ONE (21:10)
--- NOTE | 2018-01-05 21:44 | PDOC ---
History of Present Illness - General Chief Complaint: Pain Stated Complaint: FLU,BODY ACHES FEVER Time Seen by Provider: 01/05/18 20:56 - History of Present Illness Initial Comments: 01/05/18 21:43 Patient is a 47F, with no significant PMHx, who presents to the ER with her daughter for flu-like symptoms since 01/02/18 (4 days). She is complaining of mild headache, body aches, chills, sore throat, and cough. She also reports subjective fever. She denies nausea, vomiting, or diarrhea. Her daughter is here today complaining of similar symptoms. Pt denies neck stiffness, denies thunderclap headache, denies worst headache of life. Has been taking motrin with some relief at home. Past History - Past Medical History Allergies/Adverse Reactions: Allergies Allergy/AdvReac Type Severity Reaction Status Date / Time No Known Allergies Allergy Verified 01/05/18 20:53 Home Medications: Ambulatory Orders Ibuprofen [Motrin -] 600 mg PO TID PRN #21 tablet 01/05/18 COPD: No Other medical history: DENIES - Surgical History Abdominal Surgery: Yes Appendectomy: Yes (in 2006) - Suicide/Smoking/Psychosocial Hx Smoking Status: No Smoking History: Never smoked Have you smoked in the past 12 months: No Number of Cigarettes Smoked Daily: 0 Information on smoking cessation initiated: No Hx Alcohol Use: No Drug/Substance Use Hx: No Substance Use Type: None Respiratory Specific PMHX - Complaint Specific PMHX Angina: No Bronchitis: No Pneumonia: No Pulmonary Embolus: No TB (Tuberculosis): No Review of Systems - Review of Systems Comments:: 01/05/18 21:43 "GENERAL/CONSTITUTIONAL: + fever no chills. No weakness. HEAD, EYES, EARS, NOSE AND THROAT: No change in vision. No ear pain or discharge. + sore throat. CARDIOVASCULAR: No chest pain or shortness of breath. RESPIRATORY: + cough, no wheezing or hemoptysis. GASTROINTESTINAL: No nausea, vomiting, diarrhea or constipation. GENITOURINARY: No dysuria, frequency, or change in urination. MUSCULOSKELETAL: No joint or muscle swelling or pain. No neck or back pain. SKIN: No rash NEUROLOGIC: No headache, vertigo, loss of consciousness, or change in strength/ sensation. ENDOCRINE: No increased thirst. No abnormal weight change. HEMATOLOGIC/LYMPHATIC: No anemia, easy bleeding, or history of blood clots. ALLERGIC/IMMUNOLOGIC: No hives or skin allergy. " *Physical Exam - Vital Signs Last Vital Signs Temp Pulse Resp BP Pulse Ox 98.2 F 98 H 16 150/99 100 01/05/18 20:54 01/05/18 20:54 01/05/18 20:54 01/05/18 20:54 01/05/18 20:54 - Physical Exam Comments: 01/05/18 21:43 "GENERAL: Awake, alert, and fully oriented, in no acute distress HEAD: No signs of trauma EYES: PERRLA, EOMI, sclera anicteric, conjunctiva clear ENT: Auricles normal inspection, hearing grossly normal, nares patent, oropharynx clear without exudates. Moist mucosa NECK: Nontender, no stepoffs, Normal ROM, supple, no lymphadenopathy, JVD, or masses LUNGS: Breath sounds equal, clear to auscultation bilaterally. No wheezes, and no crackles HEART: Regular rate and rhythm, normal S1 and S2, no murmurs, rubs or gallops ABDOMEN: Soft, nontender, normoactive bowel sounds. No guarding, no rebound. No masses EXTREMITIES: Normal range of motion, no edema. No clubbing or cyanosis. No cords, erythema, or tenderness NEUROLOGICAL: Cranial nerves II through XII intact. 5/5 strength and sensation in all extremities, Normal speech, normal gait SKIN: Warm, Dry, normal turgor, no rashes or lesions noted. " ED Treatment Course - Medications Given in the ED: ED Medications Discontinued Medications Generic Name Dose Route Start Last Admin Trade Name Freq PRN Reason Stop Dose Admin Ketorolac Tromethamine 15 mg 01/05/18 21:09 01/05/18 21:15 Toradol Injection - IM 01/05/18 21:10 15 mg ONCE ONE Administration Medical Decision Making - Medical Decision Making 01/05/18 21:42 47 F with influenza like syndrome. Pt is now on day 4 of illness so cannot receive tamiflu. Pt with normal exam, no signs of strep throat, no signs of pneumonia. - Motrin prn - F/u PMD Pt is well appearing, with normal vitals. Clinically stable for DC at this time. I discussed the physical exam findings, ancillary test results and final diagnoses with the patient. I answered all of the patient's questions. The patient was satisfied with the care received and felt comfortable with the discharge plan and treatment plan. The patient agrees to follow up with the primary care physician within 24-72 hours. *DC/Admit/Observation/Transfer Diagnosis at time of Disposition: Upper respiratory infection, viral - Discharge Dispostion Disposition: HOME Condition at time of disposition: Stable - Prescriptions Prescriptions: Ibuprofen [Motrin -] 600 mg PO TID PRN #21 tablet PRN Reason: Fever - Referrals - Patient Instructions Additional Instructions: Take tylenol or motrin as needed for pain and fevers. If you experience high or persistent fevers for 5 or more days, severe nausea or vomiting, difficulty swallowing, abdominal pain, or any other concerning symptoms, return to the ER immediately. Otherwise, follow up with your primary doctor within 1 week for a re-evaluation. - Post Discharge Activity - Attestations Physician Attestion: 01/05/18 21:41 I, Dr. Landon Pires MD, attest that this document has been prepared under my direction and personally reviewed by me in its entirety. I further attest, that it accurately reflects all work, treatment, procedures and medical decision -making performed by me.
== END 2018-01-05 21:47 | disposition home or self-care (01) ==
LOC: FER 20:52
PROC: 3E0233Z Introduction of Anti-inflammatory into Muscle, Percutaneous Approach (ICD-10-PCS; principal; 2018-01-05)
DX: J06.9 Acute upper respiratory infection, unspecified (principal)
CPT/HCPCS: 99281-25

== ENCOUNTER 2018-09-05 08:40 | Emergency (ER) | payer SELFPAY ==
[2018-09-05 08:55] VITALS: BP 102/77; PULSE 76; TEMP 98; BMI 25.1
--- NOTE | 2018-09-05 09:12 | PDOC ---
History of Present Illness - General Chief Complaint: Back Pain Stated Complaint: BACK PAIN Time Seen by Provider: 09/05/18 09:00 - History of Present Illness Initial Comments: 09/05/18 09:10 Chief Complaint: Back pain History of Present Illness: 48 yo F with hx of sciatica presents to ED with pain to R low back radiating to R leg. Patient states she has been seen by ortho and given injections and physical therapy but was told she needed to get surgery to treat a pinched nerve, but she has not had the MRI done yet. PMH: no history of cancer PSH: no recent epidural placement or other surgery Soc hx: Denies alcohol, tobacco, drug use. Review of Systems: GENERAL/CONSTITUTIONAL: No fever or chills. No weakness. No weight change. HEAD, EYES, EARS, NOSE AND THROAT: No change in vision. No ear pain or discharge. No sore throat. CARDIOVASCULAR: No chest pain or shortness of breath. RESPIRATORY: No cough, wheezing, or hemoptysis. GASTROINTESTINAL: No nausea, vomiting, diarrhea or constipation. No rectal bleeding. GENITOURINARY: No dysuria, frequency, or change in urination. MUSCULOSKELETAL: Pain with walking. No bladder or bowel dysfunction. No joint or muscle swelling or pain. SKIN AND BREASTS: No rash or easy bruising. NEUROLOGIC: No headache, vertigo, loss of consciousness, or loss of sensation. Past Medical History: sciatica Family History: Denies Social History: Denies toxic habits Surgical history: Denies Allergies: No known drug allergies General Appearance: positive: Appropriately Dressed. negative: Apparent Distress, no intoxication HEENT: positive: EOMI, JOSE LUIS, Normal ENT Inspection, Normal Voice, TMs Normal, Pharynx Normal. No Palor of Conjunctivae, Photophobia, Scleral Icterus (R), Scleral Icterus (L) Neck: positive: Trachea midline, Normal Thyroid, Supple. No tenderness, rigidity, Carotid bruit, Stridor, Lymphadenopathy (R), Lymphadenopathy (L), Thyromegaly] Respiratory/Chest: positive: Lungs Clear, Normal Breath Sounds. No Chest Tenderness, Respiratory Distress, Accessory Muscle Use, Labored Respiration, Crackles, Rales, Rhonchi, Stridor, Wheezing, Dullness Cardiovascular: Regular Rhythm, Regular Rate, S1, S2. No JVD, Murmur, Bradycardia, Tachycardia Vascular Pulses: Dorsalis-Pedis (R): 2+, Doralis-Pedis (L): 2+] Gastrointestinal/Abdominal: positive for Normal Bowel Sounds, Flat, Soft. No Tenderness, Organomegaly, Pulsatile Mass, Distention, Guarding, Rebound, Hernia , Hepatomegaly, Spleenomegaly] Lymphatic: negative: Adenopathy, Tenderness] Musculoskeletal: Tenderness to R paravertebral muscles at L5-S1, positive straight leg test to R leg. Patient ambulatory. Full ROM in all extremities. Normal capillary refill, distal pulses equal bilaterally. Stable pelvis. No tenderness, swelling, erythema, or deformity. No midline point tenderness to cervical, thoracic, lumbar spine. Negative straight leg test. Integumentary: Normal color, dry, warm. No cyanosis, erythema, jaundice or rash Neurologic: A&Ox3, follow commands, respond appropriately CN2-12: conjugate gaze, pupil round, equal and reactive to light. Visual field full to confrontation. EOMI without nystagmus, pursuit is smooth without saccade. Facial sensation and muscle activation intact bilaterally. Hearing intact bilaterally. Palate elevate symmetrically. Shoulder shrug and neck turn full strength. Tongue protrude midline. Motor: UE and LE strength 5/5 throughout bilaterally. Muscle tone and bulk normal. L shoulder abd 5/5 elbow F/E 5/5 wrist F/E 5/5 finger F/E 5/5 R shoulder abd 5/5 elbow F/E 5/5 wrist F/E 5/5 finger F/E 5/5 L hip F/E 5/5 knee F/E 5/5 ankle F/E 5/5 R hip F/E 5/5 knee F/E 5/5 ankle F/E 5/5 Sensory: pin prick & temp : BUE & BLE intact and equal bilaterally Vibration & propioception: intact bilaterally at 1st MCP and MTP joints. no sensory level noted on trunk 09/05/18 09:53 Past History - Past Medical History Allergies/Adverse Reactions: Allergies Allergy/AdvReac Type Severity Reaction Status Date / Time No Known Allergies Allergy Verified 09/05/18 08:51 Home Medications: Ambulatory Orders Cyclobenzaprine HCl 10 mg PO HS #10 tablet 09/05/18 Diclofenac Sodium 50 mg PO QID #12 tablet. 09/05/18 COPD: No - Surgical History Abdominal Surgery: Yes Appendectomy: Yes (in 2006) - Suicide/Smoking/Psychosocial Hx Smoking Status: No Smoking History: Never smoked Have you smoked in the past 12 months: No Number of Cigarettes Smoked Daily: 0 Hx Alcohol Use: No Drug/Substance Use Hx: No Substance Use Type: None *Physical Exam - Vital Signs Last Vital Signs Temp Pulse Resp BP Pulse Ox 98 F 76 18 102/77 99 09/05/18 08:48 09/05/18 08:48 09/05/18 08:48 09/05/18 08:48 09/05/18 08:48 Medical Decision Making - Medical Decision Making 09/05/18 09:28 48 yo F with hx of sciatica presents to ED with pain to R low back radiating to R leg. -upreg -Toradol -Perc *DC/Admit/Observation/Transfer Diagnosis at time of Disposition: Sciatica Qualifiers: Laterality: right Qualified Code(s): M54.31 - Sciatica, right side - Discharge Dispostion Disposition: HOME Condition at time of disposition: Stable Decision to Admit order: No - Prescriptions Prescriptions: Cyclobenzaprine HCl 10 mg PO HS #10 tablet Diclofenac Sodium 50 mg PO QID #12 tablet.dr - Referrals Referrals: Frankie Ferrera MD [Staff Physician] - - Patient Instructions Printed Discharge Instructions: DI for Back Pain With Sciatica Additional Instructions: Please follow up with orthopedics as discussed and get the MRI as soon as possible for further evaluation of your back pain. If you develop loss of sensation to your legs, have difficulty urinating or passing stool, please return to the ER immediately. Realice un seguimiento con ortopedia tashi praveena se coment y obtenga la IRM keating pronto praveena sea posible para raymundo evaluacin adicional de curran dolor de espalda. Si desarrolla prdida de sensibilidad en las piernas, tiene dificultad para orinar o evacuar heces, por favor regrese a la christie de emergencias inmediatamente. - Post Discharge Activity
[2018-09-05] MEDS ORDERED: KETOROLAC TROMETHAMINE 60 MG/2 ML VIAL IM ONE (09:25)
[2018-09-05] MEDS ORDERED: KETOROLAC TROMETHAMINE 60 MG/2 ML VIAL ONE (09:46)
== END 2018-09-05 10:21 | disposition home or self-care (01) ==
LOC: JERFT 08:40
PROC: 3E0233Z Introduction of Anti-inflammatory into Muscle, Percutaneous Approach (ICD-10-PCS; principal; 2018-09-05)
DX: M54.41 Lumbago with sciatica, right side (principal)
CPT/HCPCS: 84703; 99281-25

== ENCOUNTER 2019-01-30 11:26 | Emergency (ER) | payer OTHER ==
[2019-01-30 11:37] VITALS: BP 118/68; PULSE 110; TEMP 100.4; BMI 25.1
[2019-01-30] MEDS ORDERED: KETOROLAC TROMETHAMINE 60 MG/2 ML VIAL IM ONE (12:14)
[2019-01-30] MEDS ORDERED: KETOROLAC TROMETHAMINE 30 MG/1 ML VIAL ONE (12:23)
--- NOTE | 2019-01-30 13:02 | PDOC ---
History of Present Illness - General Chief Complaint: Sore Throat Stated Complaint: FEVER/SORE THROAT/HEADACHE Time Seen by Provider: 01/30/19 12:01 History Source: Patient, Family Exam Limitations: No Limitations (sorethroat and bodyaches X 2 days) - History of Present Illness Associated Symptoms: reports: fever/chills, headaches. denies: chest pain, cough, loss of appetite, nausea/vomiting, shortness of breath Past History - Travel Traveled outside of the country in the last 30 days: No - Past Medical History Allergies/Adverse Reactions: Allergies Allergy/AdvReac Type Severity Reaction Status Date / Time No Known Allergies Allergy Verified 01/30/19 11:37 Home Medications: Ambulatory Orders Cyclobenzaprine HCl 10 mg PO HS #10 tablet 09/05/18 Diclofenac Sodium 50 mg PO QID #12 tablet. 09/05/18 Ibuprofen 600 mg PO ACDIN 7 Days #21 tablet 01/30/19 COPD: No - Surgical History Abdominal Surgery: Yes Appendectomy: Yes (in 2006) - Suicide/Smoking/Psychosocial Hx Smoking Status: No Smoking History: Never smoked Have you smoked in the past 12 months: No Number of Cigarettes Smoked Daily: 0 Hx Alcohol Use: No Drug/Substance Use Hx: No Substance Use Type: None Review of Systems - Review of Systems Able to Perform ROS?: Yes Is the patient limited Bhutanese proficient: No Constitutional: Yes: Chills, Fever HEENTM: Yes: Throat Pain. No: Throat Swelling Respiratory: No: Cough, Orthopnea, Shortness of Breath Cardiac (ROS): No: Chest Pain ABD/GI: No: Abdominal Distended, Abd. Pain w/ defecation, Blood Streaked Bowels , Diarrhea, Nausea : No: Dysuria Musculoskeletal: Yes: Muscle Pain. No: Back Pain Neurological: Yes: Headache. No: Numbness, Paresthesia, Tingling, Dizziness *Physical Exam - Vital Signs Last Vital Signs Temp Pulse Resp BP Pulse Ox 100.4 F H 110 H 20 118/68 99 01/30/19 11:34 01/30/19 11:34 01/30/19 11:34 01/30/19 11:34 01/30/19 11:34 - Physical Exam General Appearance: Yes: Nourished HEENT: positive: EOMI, JOSE LUIS, Pharyngeal Erythema. 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, Fully Oriented, Alert Moderate Sedation - Procedure Monitoring Vital Signs: Procedure Monitoring Vital Signs Temperature 100.4 F H 01/30/19 11:34 Pulse Rate 110 H 01/30/19 11:34 Respiratory Rate 20 01/30/19 11:34 Blood Pressure 118/68 01/30/19 11:34 O2 Sat by Pulse Oximetry (%) 99 01/30/19 11:34 ED Treatment Course - Medications Given in the ED: ED Medications Discontinued Medications Generic Name Dose Route Start Last Admin Trade Name Freddieq PRN Reason Stop Dose Admin Ketorolac Tromethamine 30 mg 01/30/19 12:14 01/30/19 12:25 Toradol Injection - IM 01/30/19 12:15 30 mg ONCE ONE Administration Medical Decision Making - Medical Decision Making 01/30/19 13:01 49y/o F with bodyaches and sorethroat since yesterday, +fever rapid strep/flu neg viral syndrome--supportive measure advised, antipyretic meds *DC/Admit/Observation/Transfer Diagnosis at time of Disposition: Viral syndrome - Discharge Dispostion Disposition: HOME Condition at time of disposition: Stable Decision to Admit order: No - Prescriptions Prescriptions: Ibuprofen 600 mg PO ACDIN 7 Days #21 tablet - Referrals - Patient Instructions Printed Discharge Instructions: DI for Viral Syndrome Additional Instructions: You were tested for strep and influenza, both test was negative. Please increase her hydration and take Tylenol or ibuprofen if you have any fever and body aches. Follow-up with her primary care doctor or return to the emergency room if worsening occurs - Post Discharge Activity
== END 2019-01-30 13:30 | disposition home or self-care (01) ==
LOC: JERFT 11:26
PROC: 3E0233Z Introduction of Anti-inflammatory into Muscle, Percutaneous Approach (ICD-10-PCS; principal; 2019-01-30)
DX: B34.9 Viral infection, unspecified (principal)
CPT/HCPCS: 87070; 87804; 87880; 96372; 99281-25

== ENCOUNTER 2022-04-13 10:25 | Emergency (ER) | payer OTHER ==
[2022-04-13] MEDS ORDERED: SODIUM CHLORIDE 1,000 ML IV STA (10:39)
[2022-04-13 10:47] VITALS: BP 115/70; PULSE 80; TEMP 97.5; BMI 25.7
[2022-04-13 11:29] LABS: EPITHELIAL CELLS FEW /hpf
== END 2022-04-13 12:55 | disposition home or self-care (01) ==
LOC: FER 10:25
PROC: 3E0337Z Introduction of Electrolytic and Water Balance Substance into Peripheral Vein, Percutaneous Approach (ICD-10-PCS; principal; 2022-04-13)
DX: N30.00 Acute cystitis without hematuria (principal)
CPT/HCPCS: 74176-TC; 81003; 81015; 96360; 99285-25

== ENCOUNTER 2022-11-05 17:24 | Emergency (ER) | payer OTHER ==
[2022-11-05 17:32] VITALS: BP 136/75; PULSE 80; RESP 18; TEMP 99.2; BMI 25.7
[2022-11-05] MEDS ORDERED: KETOROLAC TROMETHAMINE 30 MG/1 ML VIAL IM ONE (17:40)
[2022-11-05] MEDS ORDERED: KETOROLAC TROMETHAMINE 30 MG/1 ML VIAL ONE (17:45)
== END 2022-11-05 19:03 | disposition home or self-care (01) ==
LOC: FER 17:24
PROC: 3E0233Z Introduction of Anti-inflammatory into Muscle, Percutaneous Approach (ICD-10-PCS; principal; 2022-11-05)
DX: R05.1 Acute cough (principal); M79.10 Myalgia, unspecified site; R09.89 Other specified symptoms and signs involving the circulatory and respiratory systems
CPT/HCPCS: 0241U-QW; 96372; 99284-25

== ENCOUNTER 2023-10-28 19:18 | Emergency (ER) | payer OTHER ==
[2023-10-28] MEDS ORDERED: KETOROLAC TROMETHAMINE 30 MG/1 ML VIAL IM ONE (20:35)
[2023-10-28 20:36] VITALS: BP 130/75; PULSE 75; RESP 18; TEMP 99; BMI 24.8
[2023-10-28] MEDS ORDERED: KETOROLAC TROMETHAMINE 30 MG/1 ML VIAL ONE (20:38)
== END 2023-10-28 21:01 | disposition home or self-care (01) ==
LOC: FER 19:18
PROC: 3E0233Z Introduction of Anti-inflammatory into Muscle, Percutaneous Approach (ICD-10-PCS; principal; 2023-10-28)
DX: M54.41 Lumbago with sciatica, right side (principal)
CPT/HCPCS: 99284-25

== ENCOUNTER 2023-12-18 19:21 | Emergency (ER) | payer OTHER ==
[2023-12-18 19:31] VITALS: BP 130/71; PULSE 85; RESP 18; TEMP 99.5; BMI 24.9
[2023-12-18] MEDS ORDERED: SODIUM CHLORIDE 1,000 ML IV ONE (19:38)
[2023-12-18 20:37] LABS: HEMATOCRIT 39.8 % (32.4-45.2); HEMOGLOBIN 13.7 G/dL (10.7-15.3); MCH 28.8 pg (25.7-33.7); MCHC 34.4 g/dl (32.0-36.0); MEAN CELL VOLUME 83.7 fl (80-96); MEAN PLT VOLUME 9.1 fl (7.5-11.1); PLATELET COUNT 200.5 10^3/uL (134-434); RBC 4.75 10^6/uL (3.60-5.2); RDW 13.9 % (11.6-15.6); WHITE BLOOD COUNT 8.3 10^3/uL (4.0-10.8)
[2023-12-18 20:55] LABS: ALBUMIN 3.9 g/dl (3.4-5.0); BILIRUBIN,TOTAL 0.8 mg/dl (0.2-1); CALCIUM 8.7 mg/dl (8.5-10.1); CREATININE 0.6 mg/dl (0.6-1.3); PHOSPHOROUS 3.8 (2.5-4.9); POTASSIUM 3.5 mmol/L (3.5-5.1); TOT PROT 6.2 g/dl (6.4-8.2)
[2023-12-18 23:00] LABS: EPITHELIAL CELLS 0-5 /hpf
== END 2023-12-18 23:49 | disposition home or self-care (01) ==
LOC: FER 19:21
PROC: 3E0337Z Introduction of Electrolytic and Water Balance Substance into Peripheral Vein, Percutaneous Approach (ICD-10-PCS; principal; 2023-12-18)
DX: R50.9 Fever, unspecified (principal); R10.32 Left lower quadrant pain; K80.20 Calculus of gallbladder without cholecystitis without obstruction
CPT/HCPCS: 36415; 74177-TC; 76705-TC; 80053; 81003; 81015; 82550; 83735; 84100; 84484; 85027; 87077; 87086; 93005; 99285-25; Q9967

== ENCOUNTER 2023-12-25 04:11 | Day surgery (SDC) | payer OTHER ==
[2023-12-22 13:23] VITALS: BMI 24.2
[2023-12-25 06:25] VITALS: RESP 18
[2023-12-25] MEDS ORDERED: BUPIVACAINE HCL/PF 0.5% (5MG/ML) 10 ML VIAL ONE (06:55)
[2023-12-25] MEDS ORDERED: INDOCYANINE GREEN 25 MG/10 ML VIAL IVPUSH ONE (07:00)
[2023-12-25 07:08] LABS: INR 0.98 (0.83-1.09); PROTHROMBIN TIME (PATIENT) 11.4 SEC (9.7-13.0)
[2023-12-25] MEDS ORDERED: CEFOXITIN SODIUM 1 GM IVPB ONE (07:20)
[2023-12-25] MEDS ORDERED: cefOXitin SODIUM 2 GM VIAL (RESTRICTED TO ID) IVPB ONE (07:20)
[2023-12-25] MEDS ORDERED: SUCCINYLCHOLINE CHLORIDE 200 MG/10 ML SYRINGE ONE (07:33)
[2023-12-25] MEDS ORDERED: PROPOFOL 40 ML ONE (07:33)
[2023-12-25] MEDS ORDERED: ePHEDrine SULFATE 50 MG/1 ML AMPULE ONE (07:33)
[2023-12-25] MEDS ORDERED: ROCURONIUM BROMIDE 50 MG/5 ML SYRINGE ONE ×2 (07:33→08:26)
[2023-12-25] MEDS ORDERED: MIDAZOLAM HCL 2 MG/2 ML SINGLE DOSE VIAL ONE (07:34)
[2023-12-25] MEDS: cefOXitin SODIUM 1 GM VIAL (RESTRICTED TO ID) IVPB ONE (07:54)
[2023-12-25] MEDS ORDERED: MAGNESIUM SULF 50% (8.12 MEQ/2 ML-1 GM VIAL) ONE (07:55)
[2023-12-25] MEDS ORDERED: KETAMINE HCL 200 MG/20 ML VIAL ONE (07:59)
[2023-12-25] MEDS ORDERED: SODIUM CHLORIDE 0.9% P/F 10 ML VIAL IJ ONE ×2 (08:01→08:37)
[2023-12-25] MEDS ORDERED: HYDROmorphone HCl 2 MG/ML VIAL ONE (08:01)
[2023-12-25] MEDS: BUPIVACAINE HCL/PF 0.5% (5MG/ML) 10 ML VIAL IJ ONE ×2 (08:45→09:25)
[2023-12-25] MEDS ORDERED: SUGAMMADEX SODIUM 200 MG/2 ML VIAL ONE ×2 (09:24→09:45)
[2023-12-25] MEDS ORDERED: LACTATED RINGERS SOLUTION 1,000 ML IV SCH (10:00)
[2023-12-25] MEDS ORDERED: oxyCODONE HCL 5 MG TABLET PO PRN (10:00)
[2023-12-25] MEDS: ONDANSETRON 4 MG/2 ML VIAL IVPUSH PRN (13:30)
[2023-12-25] MEDS ORDERED: ONDANSETRON 4 MG/2 ML VIAL ONE (13:30)
[2023-12-25 17:44] VITALS: BP 126/74; PULSE 70; TEMP 98
== END 2023-12-25 18:11 | disposition home or self-care (01) ==
LOC: JASU-SURG 04:11
PROVIDERS: ATTEND Surgery
PROC: 8E0W4CZ Robotic Assisted Procedure of Trunk Region, Percutaneous Endoscopic Approach (ICD-10-PCS; 2023-12-25)
PROC: 0FT44ZZ Resection of Gallbladder, Percutaneous Endoscopic Approach (ICD-10-PCS; principal; 2023-12-25 07:30)
DX: K80.00 Calculus of gallbladder with acute cholecystitis without obstruction (principal)
CPT/HCPCS: 36415; 81025; 85610; 86850; 86900; 86901; 88304-TC; 94760

== ENCOUNTER 2024-05-27 17:38 | Emergency (ER) | payer OTHER ==
[2024-05-27 17:47] VITALS: BP 125/78; PULSE 79; RESP 17; TEMP 97.9; BMI 24.0
[2024-05-27 19:12] LABS: HEMOGLOBIN 13.3 G/dL (10.7-15.3); MCHC 32.5 g/dl (32.0-36.0); MEAN CELL VOLUME 83.2 fl (80-96); MEAN PLT VOLUME 9.3 fl (7.5-11.1); PLATELET COUNT 217.4 10^3/uL (134-434); RBC 4.93 10^6/uL (3.60-5.2); WHITE BLOOD COUNT 6.3 10^3/uL (4.0-10.8)
[2024-05-27 19:19] LABS: PLATELET ESTIMATE ADEQUATE
[2024-05-27 19:29] LABS: ALBUMIN 4.1 g/dl (3.4-5.0); BILIRUBIN,TOTAL 0.6 mg/dl (0.2-1); CREATININE 0.6 mg/dl (0.6-1.3); POTASSIUM 3.1 mmol/L (3.5-5.1); TOT PROT 6.8 g/dl (6.4-8.2)
[2024-05-27] MEDS ORDERED: POTASSIUM CHLORIDE TABS 20 MEQ TABLET.ER (FP) PO ONE (20:13)
[2024-05-27] MEDS: POTASSIUM CHLORIDE TABS 20 MEQ TABLET.ER (FP) PO ONE (20:14)
== END 2024-05-27 20:40 | disposition home or self-care (01) ==
LOC: FER 17:38
DX: R10.30 Lower abdominal pain, unspecified (principal); R30.0 Dysuria; M54.50 Low back pain, unspecified; R10.13 Epigastric pain; K59.00 Constipation, unspecified; Z20.822 Contact with and (suspected) exposure to COVID-19
CPT/HCPCS: 0241U-QW; 36415; 74177-TC; 80053; 81003; 81015; 84484; 84703; 85027; 87086; 87186; 99285-25; Q9967

== ENCOUNTER 2024-09-10 16:27 | Emergency (ER) | payer OTHER ==
[2024-09-10] MEDS: LACTATED RINGERS SOLUTION 1000 ML INFUS.BAG IV ONE (16:54)
[2024-09-10 17:14] VITALS: RESP 18; BMI 25.3
[2024-09-10 17:21] LABS: INR 0.92 (0.83-1.09); PROTHROMBIN TIME (PATIENT) 10.5 SEC (9.7-13.0)
[2024-09-10 17:22] LABS: HEMATOCRIT 42.6 % (32.4-45.2); HEMOGLOBIN 13.8 G/dL (10.7-15.3); MCH 27.1 pg (25.7-33.7); MCHC 32.5 g/dl (32.0-36.0); MEAN CELL VOLUME 83.3 fl (80-96); MEAN PLT VOLUME 9.9 fl (7.5-11.1); PLATELET COUNT 275.5 10^3/uL (134-434); RBC 5.11 10^6/uL (3.60-5.2); RDW 14.9 % (11.6-15.6); WHITE BLOOD COUNT 5.8 10^3/uL (4.0-10.8)
[2024-09-10 17:23] LABS: ACTIVATED PTT 28.9 SECONDS (25.2-36.5)
[2024-09-10 17:49] LABS: PLATELET ESTIMATE ADEQUATE
[2024-09-10 17:53] LABS: EPITHELIAL CELLS 0-5 /hpf
[2024-09-10 17:57] LABS: ALBUMIN 4.5 g/dl (3.4-5.0); ALK PHOS 136 U/L (45-117); ANION GAP 13 mmol/L (4-13); BILIRUBIN,TOTAL 0.4 mg/dl (0.2-1); CALCIUM 9.7 mg/dl (8.5-10.1); CHLORIDE 101 mmol/L (98-107); CO2 24 mmol/L (21-32); CREATININE 0.6 mg/dl (0.6-1.3); GLUCOSE,RANDOM 103 mg/dl (74-106); MAGNESIUM 1.8 mg/dL (1.8-2.4); PHOSPHOROUS 1.5 (2.5-4.9); POTASSIUM 3.2 mmol/L (3.5-5.1); SGOT/AST 40 U/L (15-37); SGPT/ALT 32 U/L (7-52); SODIUM 138 mmol/L (136-145); TOT PROT 7.5 g/dl (6.4-8.2)
[2024-09-10 18:01] LABS: VENOUS O2 SATURATION 69.2 % (70-80); VENOUS PCO2 32.9 mmHg (38-52); VENOUS PH 7.507 (7.310-7.410)
[2024-09-10] MEDS ORDERED: POTASSIUM CHLORIDE TABS 20 MEQ TABLET.ER (FP) PO ONE (18:17)
[2024-09-10] MEDS: NAPH,MB-DB/K PH,MBDB POWDER PACKET PO ONE (18:23)
[2024-09-10] MEDS: POTASSIUM CHLORIDE TABS 20 MEQ TABLET.ER (FP) PO ONE (18:23)
[2024-09-10 18:42] VITALS: BP 148/54; PULSE 60; TEMP 98.8
== END 2024-09-10 19:23 | disposition home or self-care (01) ==
LOC: FER 16:27
DX: R55 Syncope and collapse (principal); R29.898 Other symptoms and signs involving the musculoskeletal system; R20.0 Anesthesia of skin; R20.2 Paresthesia of skin; R06.02 Shortness of breath; Z20.822 Contact with and (suspected) exposure to COVID-19
CPT/HCPCS: 0241U-QW; 36415; 70450-TC; 71045-TC-FY; 80053; 81003; 81015; 82550; 82803; 82962; 83735; 84100; 84443; 84484; 84703; 85025; 85610; 85730; 86850; 86900; 86901; 87077; 87086; 93005; 99285-25

== ENCOUNTER 2025-01-31 16:59 | Emergency (ER) | payer OTHER ==
[2025-01-31 17:04] VITALS: BP 131/83; PULSE 78; RESP 20; TEMP 98.1; BMI 25.1
[2025-01-31] MEDS ORDERED: IBUPROFEN 600 MG TABLET (FP) PO ONE (17:11)
[2025-01-31] MEDS: IBUPROFEN 600 MG TABLET (FP) PO ONE (17:13)
[2025-01-31] MEDS ORDERED: ALBUTEROL SO4 0.083% IH SOL 2.5 MG/3 ML VIAL.NEB. NEB ONE (18:04)
[2025-01-31] MEDS: ALBUTEROL SO4 0.083% IH SOL 2.5 MG/3 ML VIAL.NEB. NEB ONE (18:06)
[2025-01-31 18:14] LABS: EPITHELIAL CELLS 0-5 /hpf
[2025-01-31 18:15] LABS: URIC ACID CRYSTALS FEW /hpf (NONE SEEN)
== END 2025-01-31 19:17 | disposition home or self-care (01) ==
LOC: FER 16:59
PROC: 3E0F7GC Introduction of Other Therapeutic Substance into Respiratory Tract, Via Natural or Artificial Opening (ICD-10-PCS; principal; 2025-01-31)
DX: J10.1 Influenza due to other identified influenza virus with other respiratory manifestations (principal); R05.9 Cough, unspecified; M79.10 Myalgia, unspecified site; R50.9 Fever, unspecified
CPT/HCPCS: 0241U-QW; 71046-TC-FY; 81003; 81015; 87077; 87086; 94640; 99284-25

== ENCOUNTER 2025-08-08 18:10 | Emergency (ER) | payer OTHER ==
[2025-08-08 18:19] VITALS: BP 114/80; PULSE 77; RESP 18; TEMP 98.2; BMI 26.2
[2025-08-08] MEDS: IBUPROFEN 600 MG TABLET (FP) PO ONE (18:36)
[2025-08-08] MEDS ORDERED: IBUPROFEN 600 MG TABLET (FP) PO ONE (18:36)
[2025-08-08 19:10] LABS: EPITHELIAL CELLS 0-5 /hpf
[2025-08-08 19:38] LABS: ABSOLUTE IMMATURE GRANULOCYTES 0.05 x10^3/uL (0.0-0.031); BASOPHILS # 0.04 x10^3/uL (0.01-0.08); EOSINOPHIL % 0.9 % (0.7-5.8); EOSINOPHILS # 0.13 x10^3/uL (0.04-0.36); MCHC 34.0 g/dl (32.2-35.5); MEAN CELL VOLUME 81.7 fl (79.4-94.8); MEAN PLT VOLUME 10.6 fl (9.4-12.3); MONOCYTE # 0.80 x10^3/uL (0.24-0.86); MONOCYTE % 5.8 % (4.7-12.5); RDW 11.7 % (12.3-16.6)
[2025-08-08] MEDS: ONDANSETRON 4 MG/2 ML VIAL IVPUSH ONE (19:41)
[2025-08-08] MEDS: SODIUM CHLORIDE 0.9% 1000 ML INFUS.BAG IV ONE (19:41)
[2025-08-08] MEDS ORDERED: PANTOPRAZOLE SODIUM 40 MG VIAL ONE (19:41)
[2025-08-08] MEDS ORDERED: ONDANSETRON 4 MG/2 ML VIAL ONE (19:43)
[2025-08-08 19:59] LABS: ALK PHOS 129.0 U/L (45-117); CO2 27.0 mmol/L (21-32); CREATININE 0.6 mg/dl (0.6-1.3); GLUCOSE,RANDOM 98.0 mg/dl (74-106); SGOT/AST 43.0 U/L (15-37); SGPT/ALT 48.0 U/L (7-52); TOT PROT 6.7 g/dl (6.4-8.2)
[2025-08-08] MEDS ORDERED: CIPROFLOXACIN 250 MG TABLET (RESTRICTED TO ID) PO ONE (20:48)
[2025-08-08] MEDS: CIPROFLOXACIN 500 MG TABLET (RESTRICTED TO ID) PO ONE (20:50)
== END 2025-08-08 20:58 | disposition home or self-care (01) ==
LOC: FER 18:10
PROC: 3E033GC Introduction of Other Therapeutic Substance into Peripheral Vein, Percutaneous Approach (ICD-10-PCS; principal; 2025-08-08)
DX: N39.0 Urinary tract infection, site not specified (principal); R30.0 Dysuria; R35.0 Frequency of micturition; M79.10 Myalgia, unspecified site
CPT/HCPCS: 36415; 74176-TC; 80053; 81003; 81015; 85025; 87086; 96374; 99285-25